=== PATIENT | male | born 1955 | race Caucasian/White ===

== ENCOUNTER → 2022-10-17 | Outpatient (CLI) | payer MEDICARE, MEDICAID | END | disposition home or self-care (01) | LOC: Rad HDHVI 10:39 | PROVIDERS: ATTEND Internal Medicine Cardiovascular Disease | DX: I34.0 Nonrheumatic mitral (valve) insufficiency (principal); I71.21 Aneurysm of the ascending aorta, without rupture; R06.02 Shortness of breath; I10 Essential (primary) hypertension | CPT/HCPCS: 93306 ==

== ENCOUNTER → 2022-10-23 | Outpatient (CLI) | payer MEDICARE, MEDICAID | END | disposition home or self-care (01) | LOC: Rad HDHVI 09:25 | PROVIDERS: ATTEND Internal Medicine Cardiovascular Disease | DX: I10 Essential (primary) hypertension (principal); E78.00 Pure hypercholesterolemia, unspecified | CPT/HCPCS: 93880 ==

== ENCOUNTER → 2022-11-06 | Outpatient (CLI) | payer MEDICARE, MEDICAID ==
[~2022-11-06] VITALS: Ht 170.2 cm; Wt 77.1 kg
[~2022-11-06] MED LIST: ADENOSINE 65 MG in GIVE UN-DILUTED 0 ML IV ONE; ADENOSINE 90 MG/30 ML INJ IV ONE
== END | disposition home or self-care (01) ==
LOC: Rad HDHVI 09:07
PROVIDERS: ATTEND Internal Medicine Cardiovascular Disease
DX: R06.02 Shortness of breath (principal); I63.9 Cerebral infarction, unspecified; I25.2 Old myocardial infarction; I10 Essential (primary) hypertension; E78.00 Pure hypercholesterolemia, unspecified
CPT/HCPCS: 78452; 93005; 96374; 96375; A9500; J0153